=== PATIENT | male | born 1930 | race Caucasian/White ===

== ENCOUNTER 2016-12-15 10:57 | Inpatient (IN) | payer OTHER, MEDICARE ==
[~2016-12-15] VITALS: Ht 152.4 cm; Wt 67.2 kg
[~2016-12-15 10:57] MED LIST: ALEVE220 M2 PO; ASPIRIN325 MG PO; GLIMEPIRIDE4 MG PO; INDOCIN50 MG PO; LASIX40 MG PO; LISINOPRIL-HCT1 EAC3 PO; LISINOPRIL20 MG PO; METFORMIN HCL500 MG PO; METOPROLOL TART25 MG PO; METOPROLOL TART50 MG PO; POTASSIUM CHLO20 ME1 PO; SIMVASTATIN80 MG PO; SPIRONOLACTONE25 MG PO; VITAMIN D-32000 UNI2 PO; ZESTRIL20 MG PO
[2016-12-15 12:02] LABS: EOSINOPHIL (%) 0.9 % (0-5); EOSINOPHIL COUNT 0.1 K/uL (0-0.3); HEMATOCRIT 40.8 % (38.0-50.0); IMMATURE GRANULOCYTE (%) 0.3 % (0.0-0.7); INSTRUMENT ABS NEUTROPHIL CT 5.2 K/uL; LYMPHOCYTE COUNT 0.7 K/uL (1.0-2.8); MCH 30.5 PG (29.0-34.0); MCHC 31.1 G/DL (30.0-36.0); MCV 97.8 FL (86-99); MEAN PLAT.VOLUME 8.9 uM^3 (9.0-12.4); MONOCYTE (%) 6.4 % (3-12); MONOCYTE COUNT 0.4 K/uL (0-0.8); NEUTROPHIL (%) 81.6 % (45-76); NEUTROPHIL COUNT 5.2 K/uL (1.8-6.4); PLATELET COUNT 281 K/uL (156-360); RBC DIS.WIDTH-SD 53.7 % (39-53); RED BLOOD COUNT 4.17 M/uL (4.00-5.50); WHITE BLOOD COUNT 6.4 K/uL (4.1-10.2)
[2016-12-15 12:11] LABS: CHLORIDE 103 mEq/L (99-109); POTASSIUM 4.5 mEq/L (3.7-5.4); SODIUM 140 mEq/L (136-147)
[2016-12-15 12:13] LABS: GLUCOSE 201 mg/dL (70-99)
[2016-12-15 12:14] LABS: ANION GAP 6 MEQ/L (2-14)
[2016-12-15 12:16] LABS: GFR ESTIMATE (CALCULATED) 56 mL/min/
[2016-12-15 12:17] LABS: UREA NITROGEN (BUN) 35 mg/dL (9-23)
[2016-12-15 12:24] LABS: TROP-I INTERPRETATION NEGATIVE; TROPONIN-I 0.02 ng/mL (0.0-0.30)
[2016-12-15] MEDS ORDERED: METFORMIN HCL500 MG PO (13:22)
[2016-12-15] MEDS ORDERED: ZOLPIDEM TARTRAT5 MG PO (13:23)
[2016-12-15] MEDS ORDERED: MIRALAX255 GM PO (13:31)
[2016-12-15 15:43] VITALS: BP 124/81
[2016-12-15 16:45] LABS: POINT-OF-CARE METER ID UU14188625
[2016-12-15 19:29] VITALS: BP 145/63
[2016-12-15 19:42] LABS: TROP-I INTERPRETATION NEGATIVE; TROPONIN-I 0.02 ng/mL (0.0-0.30)
[2016-12-15 23:18] VITALS: BP 113/62
[2016-12-16] VITALS (7 sets, daily range): BP systolic 113–139; BP diastolic 56–79
[2016-12-16 01:28] LABS: TROP-I INTERPRETATION NEGATIVE; TROPONIN-I 0.03 ng/mL (0.0-0.30)
[2016-12-16 08:29] LABS: ANION GAP 15 MEQ/L (2-14); CHLORIDE 101 MEQ/L (99-109); GFR ESTIMATE (CALCULATED) > 59 mL/min/; POTASSIUM 4.3 MEQ/L (3.7-5.4); SAMPLE HEMOLYSIS CHECK 0; SAMPLE ICTERIC CHECK 0; SAMPLE LIPEMIA CHECK 0; SODIUM 143 MEQ/L (136-147); UREA NITROGEN (BUN) 37 mg/dL (9-23)
[2016-12-16 08:31] LABS: GLUCOSE 111 mg/dL (70-99)
[2016-12-17] VITALS (8 sets, daily range): BP systolic 104–125; BP diastolic 55–84
[2016-12-17 05:24] LABS: POINT-OF-CARE METER ID UU14174225
[2016-12-17 06:15] LABS: EOSINOPHIL (%) 1.9 % (0-5); EOSINOPHIL COUNT 0.2 K/uL (0-0.3); HEMATOCRIT 41.9 % (38.0-50.0); IMMATURE GRANULOCYTE (%) 0.6 % (0.0-0.7); IMMATURE GRANULOCYTE COUNT 0.1 K/uL; LYMPHOCYTE COUNT 3.6 K/uL (1.0-2.8); MCH 30.5 PG (29.0-34.0); MCHC 30.1 G/DL (30.0-36.0); MCV 101.5 FL (86-99); MEAN PLAT.VOLUME 9.2 uM^3 (9.0-12.4); MONOCYTE (%) 5.5 % (3-12); MONOCYTE COUNT 0.7 K/uL (0-0.8); NEUTROPHIL (%) 63.5 % (45-76); PLATELET COUNT 313 K/uL (156-360); RBC DIS.WIDTH-CV 15.2 % (11.8-14.6); RBC DIS.WIDTH-SD 56.7 % (39-53); RED BLOOD COUNT 4.13 M/uL (4.00-5.50); WHITE BLOOD COUNT 12.6 K/uL (4.1-10.2)
[2016-12-17 06:20] LABS: CHLORIDE 100 mEq/L (99-109); POTASSIUM 4.4 mEq/L (3.7-5.4); SODIUM 140 mEq/L (136-147)
[2016-12-17 06:21] LABS: MAGNESIUM 1.9 mg/dL (1.3-2.7)
[2016-12-17 06:22] LABS: CHLORIDE 101 mEq/L (99-109); POTASSIUM 4.4 mEq/L (3.7-5.4); SODIUM 141 mEq/L (136-147)
[2016-12-17 06:24] LABS: ANION GAP 12 MEQ/L (2-14)
[2016-12-17 06:25] LABS: ANION GAP 12 MEQ/L (2-14)
[2016-12-17 06:26] LABS: GFR ESTIMATE (CALCULATED) 51 mL/min/; TOTAL BILIRUBIN 0.9 mg/dL (0.0-1.0)
[2016-12-17 06:27] LABS: ALKALINE PHOSPHATASE 105 IU/L (3-129); UREA NITROGEN (BUN) 36 mg/dL (9-23)
[2016-12-17 06:28] LABS: D-DIMER ELISA 1.65 mg/L FEU (< 0.57); GFR ESTIMATE (CALCULATED) 51 mL/min/
[2016-12-17 06:29] LABS: GLUCOSE 188 mg/dL (70-99); UREA NITROGEN (BUN) 35 mg/dL (9-23)
[2016-12-17 06:32] LABS: TROP-I INTERPRETATION NEGATIVE; TROPONIN-I 0.05 ng/mL (0.0-0.30)
[2016-12-17 06:34] LABS: GLUCOSE 189 mg/dL (70-99)
[2016-12-17 11:34] LABS: BASE EXCESS 5.2 mEq/L (-3 to +3); BICARBONATE 32.4 mEq/L (22-26); CARBOXY HGB 2.3 % (0-5); METHEMOGLOBIN 1.4 % (0-1.5); PCO2 60 mm Hg (35-45); PO2 78 mm Hg (80-100); pH 7.34 (7.35-7.45)
[2016-12-17 11:35] LABS: COMMENTS - BLOOD GASES C+; DEVICE HFNC; O2 FLOW 10 L/MIN; SITE RB; TOTAL RESP RATE 22 resp/min
[2016-12-17 13:18] LABS: SAMPLE HEMOLYSIS CHECK 0; SAMPLE ICTERIC CHECK 0; SAMPLE LIPEMIA CHECK 0
[2016-12-17 13:24] LABS: LACTATE DEHYDROGENASE 171 IU/L (20-246)
[2016-12-17 15:19] LABS: INTER. NORMALIZED RATIO 1.2; PTT 23.7 (25-32)
[2016-12-17 16:41] LABS: TYPE OF FLUID PLEURAL
[2016-12-17 17:30] LABS: BODY FLUID EOSINOPHILS 0 % (0-25); BODY FLUID RBC'S 1000 /MM^3 (0-100); BODY FLUID WBC'S 100 /MM^3 (0-500); MONONUCLEAR WBC'S 60 %; POLYNUCLEAR WBC'S 40 % (0-25)
[2016-12-17 17:57] LABS: BODY FLUID LDH 90 IU/L; BODY FLUID PROTEIN 3.7 G/DL
[2016-12-18 03:27] VITALS: BP 101/53
[2016-12-18 07:20] VITALS: BP 107/55
[2016-12-18 07:37] LABS: POINT-OF-CARE METER ID UU14174225
[2016-12-18 10:19] LABS: EOSINOPHIL (%) 2.7 % (0-5); EOSINOPHIL COUNT 0.2 K/uL (0-0.3); HEMATOCRIT 38.5 % (38.0-50.0); IMMATURE GRANULOCYTE (%) 0.4 % (0.0-0.7); INSTRUMENT ABS NEUTROPHIL CT 5.9 K/uL; LYMPHOCYTE COUNT 0.8 K/uL (1.0-2.8); MCH 30.4 PG (29.0-34.0); MCHC 30.6 G/DL (30.0-36.0); MCV 99.2 FL (86-99); MEAN PLAT.VOLUME 9.2 uM^3 (9.0-12.4); MONOCYTE (%) 6.1 % (3-12); MONOCYTE COUNT 0.5 K/uL (0-0.8); NEUTROPHIL COUNT 5.9 K/uL (1.8-6.4); PLATELET COUNT 253 K/uL (156-360); RBC DIS.WIDTH-CV 15.1 % (11.8-14.6); RED BLOOD COUNT 3.88 M/uL (4.00-5.50); WHITE BLOOD COUNT 7.3 K/uL (4.1-10.2)
[2016-12-18 10:27] LABS: BASE EXCESS 8.1 mEq/L (-3 to +3); BICARBONATE 34.9 mEq/L (22-26); CARBOXY HGB 2.1 % (0-5); METHEMOGLOBIN 1.5 % (0-1.5); PCO2 59 mm Hg (35-45); PO2 80 mm Hg (80-100); pH 7.38 (7.35-7.45)
[2016-12-18 10:28] LABS: COMMENTS - BLOOD GASES C+; DEVICE NC; O2 FLOW 4 L/MIN; SITE RB; TOTAL RESP RATE 16 resp/min
[2016-12-18 15:00] VITALS: BP 105/60
[2016-12-18 23:24] VITALS: BP 123/62
[2016-12-19 07:16] LABS: ANION GAP 6 MEQ/L (2-14); CHLORIDE 100 MEQ/L (99-109); GFR ESTIMATE (CALCULATED) > 59 mL/min/; POTASSIUM 4.5 MEQ/L (3.7-5.4); SAMPLE HEMOLYSIS CHECK 0; SAMPLE ICTERIC CHECK 0; SAMPLE LIPEMIA CHECK 0; SODIUM 139 MEQ/L (136-147); UREA NITROGEN (BUN) 38 mg/dL (9-23)
[2016-12-19 07:20] VITALS: BP 102/54
[2016-12-19 07:23] LABS: GLUCOSE 106 mg/dL (70-99)
[2016-12-19 08:39] LABS: BASE EXCESS 7.1 mEq/L (-3 to +3); CARBOXY HGB 2.1 % (0-5); METHEMOGLOBIN 1.8 % (0-1.5); pH 7.45 (7.35-7.45)
[2016-12-19 08:40] LABS: COMMENTS - BLOOD GASES C+; DEVICE RA; PCO2 46 mm Hg (35-45); PO2 43 mm Hg (80-100); SITE RB; TOTAL RESP RATE 16 resp/min
[2016-12-19 11:19] LABS: POINT-OF-CARE METER ID UU14174225
[2016-12-19] MEDS ORDERED: K-DUR10 MEQ PO (12:21)
[2016-12-19 14:56] VITALS: BP 117/59
== END 2016-12-19 16:50 | disposition home health service (06) | DRG 291 ==
LOC: EME 10:57 → 5SOUTH 12:37 → EDOF 12:37 → 5SOUTH 14:40
PROVIDERS: Emergency Medicine; Internal Medicine; Internal Medicine Pulmonary Disease; Physician Assistant Medical; Radiology Diagnostic Radiology
PROC: 0W993ZZ Drainage of Right Pleural Cavity, Percutaneous Approach (ICD-10-PCS; principal; 2016-12-17)
DX: I50.23 Acute on chronic systolic (congestive) heart failure (principal); J96.01 Acute respiratory failure with hypoxia; J90 Pleural effusion, not elsewhere classified; I44.2 Atrioventricular block, complete; I48.0 Paroxysmal atrial fibrillation; I49.5 Sick sinus syndrome; I11.0 Hypertensive heart disease with heart failure; I42.0 Dilated cardiomyopathy; J98.11 Atelectasis; R55 Syncope and collapse; E11.9 Type 2 diabetes mellitus without complications; I25.10 Atherosclerotic heart disease of native coronary artery without angina pectoris; E78.5 Hyperlipidemia, unspecified; Z66 Do not resuscitate; H91.90 Unspecified hearing loss, unspecified ear; Z91.14 Patient's other noncompliance with medication regimen; Z90.49 Acquired absence of other specified parts of digestive tract; Z95.0 Presence of cardiac pacemaker; I25.2 Old myocardial infarction; Z95.1 Presence of aortocoronary bypass graft
CPT/HCPCS: 36600; 71010; 71250; 80048; 80053; 82803; 82945; 82948; 83615; 83615 91; 83735; 83880; 84157; 84484; 85025; 85027; 85379; 85610; 85730; 87070; 87075; 87205; 88108; 88305; 89051; 93005; 93306; 94799; 99281; 99285; J1650; J1815; J1940

== ENCOUNTER → 2017-01-02 | Outpatient (CLI) | payer MEDICARE ==
[~2017-01-02] MED LIST changes: +K-DUR10 MEQ PO; +MIRALAX255 GM PO; +ZOLPIDEM TARTRAT5 MG PO
== END | disposition home or self-care (01) ==
LOC: CDC 10:19
DX: R94.31 Abnormal electrocardiogram [ECG] [EKG] (principal)
CPT/HCPCS: 93000

== ENCOUNTER → 2017-01-09 | Outpatient (CLI) | payer OTHER, MEDICARE ==
[2017-01-09 15:26] LABS: TYPE OF FLUID PLEURAL
[2017-01-09 15:56] LABS: BODY FLUID LDH 88 IU/L; BODY FLUID PROTEIN 3.7 G/DL
[2017-01-09 16:43] LABS: BODY FLUID EOSINOPHILS 0 % (0-25); BODY FLUID RBC'S < 1000 /MM^3 (0-100); BODY FLUID WBC'S 94 /MM^3 (0-500); MONONUCLEAR WBC'S 90 %; POLYNUCLEAR WBC'S 10 % (0-25)
== END | disposition home or self-care (01) ==
LOC: RAD 13:49 → EDSTATUS 14:00
PROVIDERS: Internal Medicine Pulmonary Disease
PROC: 0W993ZZ Drainage of Right Pleural Cavity, Percutaneous Approach (ICD-10-PCS; principal; 2017-01-09)
DX: J90 Pleural effusion, not elsewhere classified (principal)
CPT/HCPCS: 82945; 83615 91; 84157; 87070; 87205; 88108; 88305; 89051

== ENCOUNTER → 2017-02-05 | Outpatient (CLI) | payer OTHER, MEDICARE ==
[~2017-02-05] VITALS: Ht 160 cm; Wt 62.1 kg
[~2017-02-05] MED LIST changes: +LIPITOR40 MG PO; +NITROSTAT0.4 MG SL; +ZESTRIL10 MG PO
[2017-02-05 09:15] LABS: HEMATOCRIT 33.7 % (38.0-50.0); MCH 31.3 PG (29.0-34.0); MCV 97.7 FL (86-99); MEAN PLAT.VOLUME 8.6 uM^3 (9.0-12.4); PLATELET COUNT 371 K/uL (156-360); RBC DIS.WIDTH-SD 49.5 % (39-53); RED BLOOD COUNT 3.45 M/uL (4.00-5.50)
[2017-02-05 09:36] LABS: INTER. NORMALIZED RATIO 1.2; PROTHROMBIN TIME 13.4 SEC (10.2-12.9)
[2017-02-05 09:39] LABS: PTT 33.5 SEC (25-37)
[2017-02-05 09:41] LABS: POINT-OF-CARE METER ID UU13113694
== END | disposition home or self-care (01) ==
LOC: OPR 08:40 → EDSTATUS 09:00 → OPR 09:00
PROVIDERS: Nurse Practitioner Adult Health; Radiology Diagnostic Radiology
PROC: 0B9K30Z Drainage of Right Lung with Drainage Device, Percutaneous Approach (ICD-10-PCS; principal; 2017-02-05)
DX: J90 Pleural effusion, not elsewhere classified (principal)
CPT/HCPCS: 32557; 82948; 85027; 85610; 85730; C1729; J3010

== ENCOUNTER 2017-03-11 18:43 | Emergency (ER) | payer OTHER, MEDICARE ==
[~2017-03-11] VITALS: Ht 160 cm; Wt 57.5 kg
[2017-03-11 19:43] LABS: HEMATOCRIT 32.6 % (38.0-50.0); MCH 30.9 PG (29.0-34.0); MCHC 32.2 G/DL (30.0-36.0); MCV 95.9 FL (86-99); MEAN PLAT.VOLUME 8.7 uM^3 (9.0-12.4); PLATELET COUNT 306 K/uL (156-360); RBC DIS.WIDTH-SD 45.7 % (39-53); WHITE BLOOD COUNT 7.5 K/uL (4.1-10.2)
[2017-03-11 20:06] LABS: CHLORIDE 96 mEq/L (99-109); POTASSIUM 4.9 mEq/L (3.7-5.4); SODIUM 137 mEq/L (136-147)
[2017-03-11 20:08] LABS: GLUCOSE 158 mg/dL (70-99)
[2017-03-11 20:10] LABS: ANION GAP 10 MEQ/L (2-14); TOTAL BILIRUBIN 0.2 mg/dL (0.0-1.0)
[2017-03-11 20:12] LABS: ALKALINE PHOSPHATASE 99 IU/L (3-129); GFR ESTIMATE (CALCULATED) 56 mL/min/
[2017-03-11 20:13] LABS: UREA NITROGEN (BUN) 36 mg/dL (9-23)
[2017-03-11 20:17] LABS: TROP-I INTERPRETATION NEGATIVE; TROPONIN-I 0.08 ng/mL (0.0-0.30)
[2017-03-11 20:32] LABS: ADD MIUA? NO; BILIRUBIN NEGATIVE; BLOOD NEGATIVE; COLOR YELLOW ((YELLOW)); GLUCOSE (STRIP) NEGATIVE; KETONES NEGATIVE; LEUKOCYTES NEGATIVE; NITRITE NEGATIVE; PROTEIN (STRIP) NEGATIVE; SPECIFIC GRAVITY 1.011 (1.000-1.030); UCUL ADDED? NO; UROBILINOGEN 0.2 MG/DL (0.2-1.0)
[2017-03-11 21:16] VITALS: BP 118/76
== END 2017-03-11 21:17 | disposition home or self-care (01) ==
LOC: EME → EDBD 18:43 → EME 21:17
PROVIDERS: Emergency Medicine
DX: E86.0 Dehydration (principal); R42 Dizziness and giddiness; I11.0 Hypertensive heart disease with heart failure; I50.9 Heart failure, unspecified; E11.9 Type 2 diabetes mellitus without complications; I25.2 Old myocardial infarction; Z95.1 Presence of aortocoronary bypass graft; Z79.84 Long term (current) use of oral hypoglycemic drugs
CPT/HCPCS: 70450; 71020; 80053; 81003; 84484; 85027; 93005; 99281; 99285; J7040

== ENCOUNTER → 2017-03-25 | Outpatient (CLI) | payer OTHER, MEDICARE ==
[~2017-03-25] VITALS: Ht 160 cm; Wt 58.1 kg
[2017-03-25 08:00] LABS: HEMATOCRIT 29.4 % (38.0-50.0); MCHC 32.7 G/DL (30.0-36.0); MCV 94.8 FL (86-99); MEAN PLAT.VOLUME 8.4 uM^3 (9.0-12.4); PLATELET COUNT 312 K/uL (156-360); RBC DIS.WIDTH-SD 45.1 % (39-53); WHITE BLOOD COUNT 8.1 K/uL (4.1-10.2)
[2017-03-25 08:06] LABS: INTER. NORMALIZED RATIO 1.1; PROTHROMBIN TIME 12.5 SEC (10.2-12.9)
[2017-03-25 08:09] LABS: PTT 32.3 SEC (25-37)
== END | disposition home or self-care (01) ==
LOC: OPR 07:17 → EDSTATUS 08:00
PROVIDERS: Internal Medicine Pulmonary Disease
PROC: 0BPLX0Z Removal of Drainage Device from Left Lung, External Approach (ICD-10-PCS; principal; 2017-03-25)
DX: Z45.89 Encounter for adjustment and management of other implanted devices (principal); J90 Pleural effusion, not elsewhere classified; Z79.82 Long term (current) use of aspirin; Z79.1 Long term (current) use of non-steroidal anti-inflammatories (NSAID)
CPT/HCPCS: 32552; 85027; 85610; 85730

== ENCOUNTER 2017-09-09 16:54 | Inpatient (IN) | payer OTHER, MEDICARE ==
[~2017-09-09] VITALS: Ht 160 cm; Wt 80.4 kg
[2017-09-09 17:56] LABS: BASOPHIL (%) 0.4 % (0-1); EOSINOPHIL (%) 1.3 % (0-5); EOSINOPHIL COUNT 0.1 K/uL (0-0.3); HEMATOCRIT 32.2 % (38.0-50.0); HEMOGLOBIN 10.3 G/DL (12.5-16.6); IMMATURE GRANULOCYTE (%) 0.3 % (0.0-0.7); LYMPHOCYTE (%) 10.8 % (15-42); LYMPHOCYTE COUNT 0.8 K/uL (1.0-2.8); MCH 28.2 PG (29.0-34.0); MCV 88.2 FL (86-99); MONOCYTE (%) 7.2 % (3-12); MONOCYTE COUNT 0.6 K/uL (0-0.8); NEUTROPHIL COUNT 6.2 K/uL (1.8-6.4); PLATELET COUNT 277 K/uL (156-360); RBC DIS.WIDTH-SD 51.8 % (39-53); RED BLOOD COUNT 3.65 M/uL (4.00-5.50); WHITE BLOOD COUNT 7.8 K/uL (4.1-10.2)
[2017-09-09 18:01] LABS: INTER. NORMALIZED RATIO 1.3
[2017-09-09 18:04] LABS: PTT 32.8 SEC (25-37)
[2017-09-09 18:04] LABS: ALBUMIN 3.2 g/dL (3.2-4.8); CHLORIDE 104 mEq/L (99-109); POTASSIUM 4.1 mEq/L (3.7-5.4); SODIUM 136 mEq/L (136-147)
[2017-09-09 18:06] LABS: GLUCOSE 202 mg/dL (70-99)
[2017-09-09 18:07] LABS: TOTAL PROTEIN 7.1 g/dL (6.4-8.3)
[2017-09-09 18:08] LABS: TOTAL BILIRUBIN 0.6 mg/dL (0.0-1.0)
[2017-09-09 18:10] LABS: ALKALINE PHOSPHATASE 96 IU/L (3-129); CREATININE 1.2 mg/dL (0.6-1.3); GFR ESTIMATE (CALCULATED) > 59 mL/min/ (58.99-99999)
[2017-09-09 18:11] LABS: UREA NITROGEN (BUN) 24 mg/dL (9-23)
[2017-09-09 18:12] LABS: AST (GOT) 22 IU/L (2-34)
[2017-09-09 18:13] LABS: ALT (GPT) 11 IU/L (3-49)
[2017-09-09 18:28] LABS: TROP-I INTERPRETATION NEGATIVE; TROPONIN-I 0.04 ng/mL (0.0-0.30)
[2017-09-10 00:27] VITALS: BP 112/72
[2017-09-10 00:47] LABS: TROP-I INTERPRETATION NEGATIVE; TROPONIN-I 0.05 ng/mL (0.0-0.30)
[2017-09-10 03:38] VITALS: BP 112/63
[2017-09-10 06:51] LABS: HEMATOCRIT 31.7 % (38.0-50.0); HEMOGLOBIN 9.7 G/DL (12.5-16.6); MCH 27.3 PG (29.0-34.0); MCHC 30.6 G/DL (30.0-36.0); MCV 89.3 FL (86-99); PLATELET COUNT 267 K/uL (156-360); RBC DIS.WIDTH-SD 53.1 % (39-53); RED BLOOD COUNT 3.55 M/uL (4.00-5.50); WHITE BLOOD COUNT 7.1 K/uL (4.1-10.2)
[2017-09-10 07:28] LABS: CHLORIDE 104 MEQ/L (99-109); CREATININE 1.2 MG/DL (0.6-1.3); GFR ESTIMATE (CALCULATED) > 59 mL/min/ (58.99-99999); GLUCOSE 150 mg/dL (70-99); POTASSIUM 4.3 MEQ/L (3.7-5.4); SODIUM 137 MEQ/L (136-147); UREA NITROGEN (BUN) 24 mg/dL (9-23)
[2017-09-10 08:00] LABS: TROP-I INTERPRETATION NEGATIVE; TROPONIN-I 0.05 ng/mL (0.0-0.30)
[2017-09-10 08:36] VITALS: BP 136/66
[2017-09-10] MEDS ORDERED: AUGMENTIN875 MG PO (11:33)
[2017-09-10] MEDS ORDERED: PROAIR HFA8.5 GM IH (11:33)
[2017-09-10] MEDS ORDERED: CILOSTAZOL50 MG PO (11:34)
[2017-09-10 12:01] VITALS: BP 133/58
[2017-09-10 16:23] VITALS: BP 135/64
[2017-09-10 20:21] VITALS: BP 112/66
[2017-09-11] VITALS (7 sets, daily range): BP systolic 101–121; BP diastolic 55–68
[2017-09-11 06:22] LABS: HEMATOCRIT 32.1 % (38.0-50.0); HEMOGLOBIN 9.7 G/DL (12.5-16.6); MCH 27.1 PG (29.0-34.0); MCHC 30.2 G/DL (30.0-36.0); MCV 89.7 FL (86-99); PLATELET COUNT 284 K/uL (156-360); RBC DIS.WIDTH-CV 16.1 % (11.8-14.6); RBC DIS.WIDTH-SD 53.2 % (39-53); RED BLOOD COUNT 3.58 M/uL (4.00-5.50); WHITE BLOOD COUNT 7.7 K/uL (4.1-10.2)
[2017-09-11 07:02] LABS: CHLORIDE 106 MEQ/L (99-109); CREATININE 1.4 MG/DL (0.6-1.3); GFR ESTIMATE (CALCULATED) 51 mL/min/ (58.99-99999); POTASSIUM 5.1 MEQ/L (3.7-5.4); SODIUM 137 MEQ/L (136-147); UREA NITROGEN (BUN) 31 mg/dL (9-23)
[2017-09-11 07:12] LABS: GLUCOSE 101 mg/dL (70-99)
[2017-09-11 12:00] LABS: APPEARANCE SL.HAZY ((CLEAR)); BILIRUBIN NEGATIVE; BLOOD NEGATIVE; COLOR YELLOW ((YELLOW)); GLUCOSE (STRIP) NEGATIVE; KETONES NEGATIVE; LEUKOCYTES SMALL; NITRITE NEGATIVE; PROTEIN (STRIP) NEGATIVE; SPECIFIC GRAVITY 1.012 (1.000-1.030); UROBILINOGEN 0.2 MG/DL (0.2-1.0)
[2017-09-11 13:49] LABS: BACTERIA RARE /HPF; EPITHELIAL CELLS RARE /HPF; MUCUS TRACE /LPF; RED BLOOD CELLS 0-5 /HPF (0-5); WHITE BLOOD CELLS 0-5 /HPF (0-5)
[2017-09-12] VITALS (8 sets, daily range): BP systolic 94–130; BP diastolic 54–78
[2017-09-12 06:20] LABS: CHLORIDE 103 MEQ/L (99-109); CREATININE 1.6 MG/DL (0.6-1.3); GFR ESTIMATE (CALCULATED) 44 mL/min/ (58.99-99999); GLUCOSE 107 mg/dL (70-99); SODIUM 136 MEQ/L (136-147); UREA NITROGEN (BUN) 34 mg/dL (9-23)
[2017-09-13 06:54] LABS: MCH 27.2 PG (29.0-34.0); MCHC 30.3 G/DL (30.0-36.0); MCV 89.7 FL (86-99); PLATELET COUNT 295 K/uL (156-360); RED BLOOD COUNT 3.68 M/uL (4.00-5.50); WHITE BLOOD COUNT 7.6 K/uL (4.1-10.2)
[2017-09-13 07:10] LABS: CHLORIDE 100 MEQ/L (99-109); CREATININE 1.5 MG/DL (0.6-1.3); GFR ESTIMATE (CALCULATED) 47 mL/min/ (58.99-99999); GLUCOSE 116 mg/dL (70-99); POTASSIUM 4.8 MEQ/L (3.7-5.4); SODIUM 132 MEQ/L (136-147); UREA NITROGEN (BUN) 37 mg/dL (9-23)
[2017-09-13 07:35] VITALS: BP 98/62
[2017-09-13 11:21] VITALS: BP 102/64
[2017-09-13 15:32] VITALS: BP 97/59
[2017-09-13 19:37] VITALS: BP 110/52
[2017-09-13 23:45] VITALS: BP 120/58
[2017-09-14 03:35] VITALS: BP 112/56
[2017-09-14 06:47] LABS: CHLORIDE 104 MEQ/L (99-109); CREATININE 1.3 MG/DL (0.6-1.3); GFR ESTIMATE (CALCULATED) 56 mL/min/ (58.99-99999); POTASSIUM 4.7 MEQ/L (3.7-5.4); SODIUM 138 MEQ/L (136-147); UREA NITROGEN (BUN) 37 mg/dL (9-23)
[2017-09-14 06:50] LABS: GLUCOSE 79 mg/dL (70-99)
[2017-09-14 07:33] VITALS: BP 114/60
[2017-09-14 11:03] VITALS: BP 104/55
[2017-09-14 15:24] VITALS: BP 113/62
[2017-09-14 19:23] VITALS: BP 110/58
[2017-09-14 23:52] VITALS: BP 112/48
[2017-09-15 03:52] VITALS: BP 112/62
[2017-09-15 06:20] LABS: CHLORIDE 104 MEQ/L (99-109); CREATININE 1.3 MG/DL (0.6-1.3); GFR ESTIMATE (CALCULATED) 56 mL/min/ (58.99-99999); GLUCOSE 116 mg/dL (70-99); POTASSIUM 4.8 MEQ/L (3.7-5.4); SODIUM 138 MEQ/L (136-147); UREA NITROGEN (BUN) 38 mg/dL (9-23)
[2017-09-15 07:22] VITALS: BP 118/68
[2017-09-15 11:03] VITALS: BP 120/72
[2017-09-15 15:04] VITALS: BP 116/70
[2017-09-15 20:00] VITALS: BP 108/60
[2017-09-16] VITALS: BP 100/46
[2017-09-16 03:48] VITALS: BP 104/48
[2017-09-16 07:13] LABS: CHLORIDE 103 MEQ/L (99-109); CREATININE 1.3 MG/DL (0.6-1.3); GFR ESTIMATE (CALCULATED) 56 mL/min/ (58.99-99999); GLUCOSE 92 mg/dL (70-99); POTASSIUM 4.9 MEQ/L (3.7-5.4); SODIUM 140 MEQ/L (136-147); UREA NITROGEN (BUN) 40 mg/dL (9-23)
[2017-09-16 07:59] VITALS: BP 124/72
[2017-09-16 12:00] VITALS: BP 108/70
[2017-09-16] MEDS ORDERED: DOXYCYCLINE HY100 M3 PO (15:14)
[2017-09-16] MEDS ORDERED: ATORVASTATIN CA40 MG PO (15:14)
[2017-09-16] MEDS ORDERED: LOPRESSOR50 MG PO (15:14)
[2017-09-16] MEDS ORDERED: LASIX80 MG PO (15:15)
[2017-09-16 15:52] VITALS: BP 108/64
== END 2017-09-16 17:21 | disposition home health service (06) | DRG 291 ==
LOC: EME 16:54 → 4SOUTH 22:16 → EDOF 22:16 → ENRESERV 22:17 → 4SOUTH 23:47 → ENRESERV 09-12 04:47 → 5SOUTH 09-12 06:00
PROVIDERS: Emergency Medicine; Hospitalist; Internal Medicine; Internal Medicine Cardiovascular Disease; Physician Assistant
DX: I13.0 Hypertensive heart and chronic kidney disease with heart failure and stage 1 through stage 4 chronic kidney disease, or unspecified chronic kidney disease (principal); I50.23 Acute on chronic systolic (congestive) heart failure; E11.22 Type 2 diabetes mellitus with diabetic chronic kidney disease; N18.9 Chronic kidney disease, unspecified; T87.81 Dehiscence of amputation stump; T87.43 Infection of amputation stump, right lower extremity; L03.115 Cellulitis of right lower limb; N17.9 Acute kidney failure, unspecified; T50.1X5A Adverse effect of loop [high-ceiling] diuretics, initial encounter; I42.0 Dilated cardiomyopathy; E11.51 Type 2 diabetes mellitus with diabetic peripheral angiopathy without gangrene; I25.10 Atherosclerotic heart disease of native coronary artery without angina pectoris; I48.0 Paroxysmal atrial fibrillation; E78.5 Hyperlipidemia, unspecified; I08.3 Combined rheumatic disorders of mitral, aortic and tricuspid valves; H91.90 Unspecified hearing loss, unspecified ear; E66.9 Obesity, unspecified; Z66 Do not resuscitate; Z95.1 Presence of aortocoronary bypass graft; Z95.0 Presence of cardiac pacemaker; I25.2 Old myocardial infarction; Z68.33 Body mass index [BMI] 33.0-33.9, adult; Z87.891 Personal history of nicotine dependence; Z89.411 Acquired absence of right great toe; Z89.421 Acquired absence of other right toe(s); Z91.11 Patient's noncompliance with dietary regimen; Z79.82 Long term (current) use of aspirin
CPT/HCPCS: 71045; 71046; 80048; 80053; 81003; 82948; 83880; 84484; 85025; 85027; 85610; 85730; 87040; 87070; 87075; 87106; 87205; 93005; 93970; 94799; 99281; 99285; J0456; J0696; J1644; J1815; J1940; J2543; J3370; J7050

== ENCOUNTER 2017-10-10 11:27 | Inpatient (IN) | payer OTHER, MEDICARE ==
[~2017-10-10] VITALS: Ht 162.6 cm; Wt 88.6 kg
[~2017-10-10 11:27] MED LIST changes: +ATORVASTATIN CA40 MG PO; +AUGMENTIN875 MG PO; +CILOSTAZOL50 MG PO; +DOXYCYCLINE HY100 M3 PO; +LASIX80 MG PO; +LOPRESSOR50 MG PO; +PROAIR HFA8.5 GM IH
[2017-10-10 12:26] LABS: BASOPHIL (%) 0.1 % (0-1); EOSINOPHIL (%) 1.3 % (0-5); EOSINOPHIL COUNT 0.1 K/uL (0-0.3); HEMOGLOBIN 9.6 G/DL (12.5-16.6); IMMATURE GRANULOCYTE (%) 0.4 % (0.0-0.7); LYMPHOCYTE COUNT 0.7 K/uL (1.0-2.8); MCH 28.2 PG (29.0-34.0); MCV 88.2 FL (86-99); MONOCYTE (%) 6.3 % (3-12); MONOCYTE COUNT 0.5 K/uL (0-0.8); NEUTROPHIL (%) 82.9 % (45-76); NEUTROPHIL COUNT 6.6 K/uL (1.8-6.4); PLATELET COUNT 221 K/uL (156-360); RBC DIS.WIDTH-CV 17.7 % (11.8-14.6); RBC DIS.WIDTH-SD 56.8 % (39-53); WHITE BLOOD COUNT 7.9 K/uL (4.1-10.2)
[2017-10-10 12:57] LABS: TROP-I INTERPRETATION NEGATIVE; TROPONIN-I 0.03 ng/mL (0.0-0.30)
[2017-10-10 13:20] LABS: CHLORIDE 112 MEQ/L (99-109); CREATININE 1.5 MG/DL (0.6-1.3); GFR ESTIMATE (CALCULATED) 47 mL/min/ (58.99-99999); POTASSIUM 4.8 MEQ/L (3.7-5.4); SODIUM 140 MEQ/L (136-147); UREA NITROGEN (BUN) 50 mg/dL (9-23)
[2017-10-10 13:21] LABS: GLUCOSE 116 mg/dL (70-99)
[2017-10-10] MEDS ORDERED: ASPIRIN81 M2 PO (14:49)
[2017-10-10] MEDS ORDERED: LASIX80 MG PO (15:19)
[2017-10-10] MEDS ORDERED: LASIX40 MG PO (15:19)
[2017-10-10 17:41] LABS: APPEARANCE CLEAR ((CLEAR)); BILIRUBIN NEGATIVE; BLOOD NEGATIVE; COLOR YELLOW ((YELLOW)); GLUCOSE (STRIP) NEGATIVE; KETONES NEGATIVE; LEUKOCYTES NEGATIVE; NITRITE NEGATIVE; PROTEIN (STRIP) NEGATIVE; SPECIFIC GRAVITY 1.012 (1.000-1.030); UCUL ADDED? NO; UROBILINOGEN 0.2 MG/DL (0.2-1.0)
[2017-10-10 18:20] VITALS: BP 100/59
[2017-10-10 19:23] LABS: TROP-I INTERPRETATION NEGATIVE; TROPONIN-I 0.04 ng/mL (0.0-0.30)
[2017-10-10 19:59] VITALS: BP 105/53
[2017-10-11 00:39] VITALS: BP 114/40
[2017-10-11 01:10] LABS: TROP-I INTERPRETATION NEGATIVE; TROPONIN-I 0.04 ng/mL (0.0-0.30)
[2017-10-11 03:53] VITALS: BP 98/77
[2017-10-11 04:30] VITALS: BP 105/69
[2017-10-11 06:28] LABS: HEMATOCRIT 28.3 % (38.0-50.0); HEMOGLOBIN 8.7 G/DL (12.5-16.6); MCH 27.4 PG (29.0-34.0); MCHC 30.7 G/DL (30.0-36.0); MCV 89.3 FL (86-99); PLATELET COUNT 215 K/uL (156-360); RBC DIS.WIDTH-CV 17.9 % (11.8-14.6); RBC DIS.WIDTH-SD 58.1 % (39-53); RED BLOOD COUNT 3.17 M/uL (4.00-5.50); WHITE BLOOD COUNT 10.4 K/uL (4.1-10.2)
[2017-10-11 06:45] LABS: CHLORIDE 113 MEQ/L (99-109); CREATININE 1.6 MG/DL (0.6-1.3); GFR ESTIMATE (CALCULATED) 44 mL/min/ (58.99-99999); POTASSIUM 5.1 MEQ/L (3.7-5.4); SODIUM 142 MEQ/L (136-147); UREA NITROGEN (BUN) 49 mg/dL (9-23)
[2017-10-11 06:48] LABS: GLUCOSE 86 mg/dL (70-99)
[2017-10-11 07:18] VITALS: BP 93/55
[2017-10-11 10:24] LABS: BASE EXCESS -5.6 mEq/L (-3 to +3); CARBOXY HGB 2.3 % (0-5); METHEMOGLOBIN 1.4 % (0-1.5); PCO2 43 mm Hg (35-45)
[2017-10-11 10:25] LABS: BICARBONATE 20.7 mEq/L (22-26); COMMENTS - BLOOD GASES A+C+; DEVICE VENTI MASK; FI02 40 %; O2 FLOW 10 L/MIN; PO2 92 mm Hg (80-100); SITE R RAD; TOTAL RESP RATE 18 resp/min; pH 7.29 (7.35-7.45)
[2017-10-11 12:20] VITALS: BP 90/45
[2017-10-11] MEDS ORDERED: ATIVAN0.5 MG PO (16:16)
[2017-10-11] MEDS ORDERED: HYOSCYAMINE0.125 M2 PO (16:16)
[2017-10-11] MEDS ORDERED: MORPHINE CON20 MG/M1 PO (16:16)
== END 2017-10-11 18:06 | disposition hospice, home (50) | DRG 69 ==
LOC: EME 11:27 → EDOF 14:45 → 2EAST 14:45 → ENRESERV 14:46 → CANRESERV 15:50 → ENRESERV 15:50 → 2EAST 18:07
PROVIDERS: Emergency Medicine; Hospitalist; Internal Medicine
DX: G45.9 Transient cerebral ischemic attack, unspecified (principal); I13.0 Hypertensive heart and chronic kidney disease with heart failure and stage 1 through stage 4 chronic kidney disease, or unspecified chronic kidney disease; I50.23 Acute on chronic systolic (congestive) heart failure; E11.9 Type 2 diabetes mellitus without complications; I73.9 Peripheral vascular disease, unspecified; H91.90 Unspecified hearing loss, unspecified ear; E11.22 Type 2 diabetes mellitus with diabetic chronic kidney disease; I25.5 Ischemic cardiomyopathy; E11.51 Type 2 diabetes mellitus with diabetic peripheral angiopathy without gangrene; J96.01 Acute respiratory failure with hypoxia; E78.5 Hyperlipidemia, unspecified; R53.83 Other fatigue; R68.0 Hypothermia, not associated with low environmental temperature; I25.10 Atherosclerotic heart disease of native coronary artery without angina pectoris; D64.9 Anemia, unspecified; M79.89 Other specified soft tissue disorders; R41.82 Altered mental status, unspecified; I48.0 Paroxysmal atrial fibrillation; Z66 Do not resuscitate; N17.9 Acute kidney failure, unspecified; E87.1 Hypo-osmolality and hyponatremia; R33.9 Retention of urine, unspecified; N48.89 Other specified disorders of penis; Z51.5 Encounter for palliative care; Z87.440 Personal history of urinary (tract) infections; Z95.0 Presence of cardiac pacemaker; Z95.1 Presence of aortocoronary bypass graft; Z79.82 Long term (current) use of aspirin; Z89.411 Acquired absence of right great toe; Z83.3 Family history of diabetes mellitus
CPT/HCPCS: 36600; 70450; 71045; 80048; 81003; 82803; 82948; 83605; 83630; 83880; 84484; 85025; 85027; 87040; 87493; 87506; 93005; 93306; 93970; 94799; 99281; 99285; J1644; J1940; J2405; J3370; J7030